=== PATIENT | male | born 1945 | race Caucasian/White ===

== ENCOUNTER 2021-01-18 09:30 | Inpatient (IN) | payer OTHER ==
[~2021-01-18] VITALS: Ht 175.3 cm; Wt 76.9 kg
[2021-01-18] VITALS (7 sets, daily range): BP systolic 129–157; BP diastolic 75–89
[~2021-01-18 09:30] MED LIST: ALBUTEROL NEB INH; ASPIR 8181 MG PO; ASPIRIN81 M2 PO; FLOMAX0.4 MG PO; FLUOXETINE HCL10 MG PO; HYDROCODON PO; IBUPROFEN400 MG PO; LEVAQUIN500 MG PO; LOPRESSOR25 MG PO; METHOCARBAMOL750 MG PO; METOPROLOL TART25 MG PO; MULTAQ400 MG PO; MULTI-VITAMIN1 EACH; MULTIVITAMIN1 EAC2 PO; PREDNISONE5 MG PO; SYMBICORT 16010.2 GM INH; TAMSULOSIN HCL0.4 MG PO; TESSALON PERLE100 MG PO; TIOTROPIUM INH; TRAZODONE HCL50 MG PO; VENTOLIN HFA18 GM INH; Z.0.TERBINAFINE HC25 PO
[2021-01-18 10:01] LABS: BASOPHILS % 0.3 % (0.0-1.0); HEMATOCRIT 37.5 % (38.2-49.6); HEMOGLOBIN 12.3 g/dL (14.0-18.0); LYMPHOCYTES # (AUTO) 0.7 (1.0-3.2); LYMPHOCYTES % 8.7 % (18.0-39.1); MEAN CORPUSCULAR HEMOGLOBIN 28.9 pg (28-32); MEAN CORPUSCULAR HGB CONC 32.8 g/dL (31-35); MEAN CORPUSCULAR VOLUME 88.2 fL (81-99); MONOCYTES # (AUTO) 0.8 (0.2-0.8); MONOCYTES % 9.8 % (4.4-11.3); NEUTROPHILS # (AUTO) 6.3 (2.1-6.9); NEUTROPHILS % 80.9 % (38.7-80.0); PLATELET COUNT 261 x10e3/uL (140-360); RED BLOOD COUNT 4.25 x10e6/uL (4.3-5.7); RED CELL DISTRIBUTION WIDTH 12.7 % (11.7-14.4)
[2021-01-18 10:12] LABS: ALANINE AMINOTRANSFERASE 19 IU/L (0-55); ALBUMIN/GLOBULIN RATIO 0.9 (0.8-2.0); ALKALINE PHOSPHATASE 76 IU/L (40-150); BLOOD UREA NITROGEN 15 mg/dL (7-26); BUN/CREATININE RATIO 19 (6-25); CALCIUM 8.6 mg/dL (8.4-10.2); CARBON DIOXIDE 27 mmol/L (22-29); CHLORIDE 100 mmol/L (98-107); CREATINE KINASE 434 IU/L (30-200); CREATININE, SERUM 0.77 mg/dL (0.72-1.25); EST GLOMERULAR FILTRATION RATE > 60 ML/MIN (60-); GLUCOSE 140 mg/dL (74-118); SODIUM 138 mmol/L (136-145)
[2021-01-18] MEDS ORDERED: PIPERACILLIN/TAZOBAC 3.375 GM in SODIUM CHLORIDE 0.9% 50ML 50 ML IV SCH (11:30)
[2021-01-18] MEDS ORDERED: ALBUTEROL/IPRATROPIUM 3 ML NEB NEB PRN (13:45)
[2021-01-18] MEDS: FLUOXETINE HCL 10 MG CAP PO SCH ×2 (16:45→21:01)
[2021-01-18] MEDS: METOPROLOL TARTRATE 25 MG TAB PO SCH (16:47)
[2021-01-18] MEDS: DRONEDARONE 400 MG TAB PO SCH (16:48)
[2021-01-18] MEDS ORDERED: SEROQUEL50 MG PO (17:06)
[2021-01-18] MEDS: QUETIAPINE FUMARATE 25 MG TAB PO PRN (17:26)
[2021-01-18 19:57] LABS: CREATINE KINASE 362 IU/L (30-200)
[2021-01-18] MEDS: TAMSULOSIN HCL 0.4 MG CAP PO SCH (21:00)
[2021-01-18] MEDS ORDERED: HYDRALAZINE HCL 20 MG/ML VIAL IV PRN (23:15)
[2021-01-18] MEDS: AZITHROMYCIN 500MG/NS 250 ML 250 ML IV SCH (23:54)
[2021-01-18] MEDS: SODIUM CHLORIDE 0.9% 1000ML 1,000 ML IV SCH (23:54)
[2021-01-19] VITALS (7 sets, daily range): BP systolic 115–141; BP diastolic 62–78
[2021-01-19] MEDS: AZITHROMYCIN 500MG/NS 250 ML 250 ML IV SCH (00:05)
[2021-01-19] MEDS: PIPERACILLIN/TAZOBAC 3.375 GM in SODIUM CHLORIDE 0.9% 50ML 50 ML IV SCH ×5 (00:49→23:24)
[2021-01-19 04:47] LABS: BASOPHILS % 0.3 % (0.0-1.0); EOSINOPHILS % 0.3 % (0.0-6.0); HEMATOCRIT 36.1 % (38.2-49.6); HEMOGLOBIN 11.7 g/dL (14.0-18.0); LYMPHOCYTES # (AUTO) 1.2 (1.0-3.2); LYMPHOCYTES % 17.4 % (18.0-39.1); MEAN CORPUSCULAR HGB CONC 32.4 g/dL (31-35); MEAN CORPUSCULAR VOLUME 89.4 fL (81-99); MONOCYTES # (AUTO) 0.7 (0.2-0.8); MONOCYTES % 9.4 % (4.4-11.3); NEUTROPHILS # (AUTO) 5.1 (2.1-6.9); NEUTROPHILS % 72.2 % (38.7-80.0); PLATELET COUNT 264 x10e3/uL (140-360); RED BLOOD COUNT 4.04 x10e6/uL (4.3-5.7); RED CELL DISTRIBUTION WIDTH 12.6 % (11.7-14.4)
[2021-01-19 05:10] LABS: ALANINE AMINOTRANSFERASE 23 IU/L (0-55); ALBUMIN 2.6 g/dL (3.5-5.0); ALBUMIN/GLOBULIN RATIO 0.9 (0.8-2.0); ALKALINE PHOSPHATASE 67 IU/L (40-150); BLOOD UREA NITROGEN 14 mg/dL (7-26); BUN/CREATININE RATIO 18 (6-25); CALCIUM 8.1 mg/dL (8.4-10.2); CARBON DIOXIDE 27 mmol/L (22-29); CHLORIDE 103 mmol/L (98-107); CREATININE, SERUM 0.78 mg/dL (0.72-1.25); EST GLOMERULAR FILTRATION RATE > 60 ML/MIN (60-); GLUCOSE 102 mg/dL (74-118); SODIUM 140 mmol/L (136-145)
[2021-01-19 05:36] LABS: CREATINE KINASE MB 0.9 ng/mL (0-5.0)
[2021-01-19] MEDS: QUETIAPINE FUMARATE 25 MG TAB PO PRN ×3 (05:41→17:01)
[2021-01-19] MEDS: SODIUM CHLORIDE 0.9% 1000ML 1,000 ML IV SCH (08:43)
[2021-01-19] MEDS: DRONEDARONE 400 MG TAB PO SCH ×2 (08:43→16:54)
[2021-01-19] MEDS: METOPROLOL TARTRATE 25 MG TAB PO SCH ×2 (08:43→16:54)
[2021-01-19] MEDS: FLUOXETINE HCL 10 MG CAP PO SCH ×3 (08:43→20:01)
[2021-01-19] MEDS: TRAZODONE HCL 50 MG TAB PO PRN (20:01)
[2021-01-19] MEDS: TAMSULOSIN HCL 0.4 MG CAP PO SCH (20:01)
[2021-01-20] VITALS (8 sets, daily range): BP systolic 117–136; BP diastolic 60–89
[2021-01-20] MEDS: QUETIAPINE FUMARATE 25 MG TAB PO PRN ×3 (00:20→19:37)
[2021-01-20] MEDS: PIPERACILLIN/TAZOBAC 3.375 GM in SODIUM CHLORIDE 0.9% 50ML 50 ML IV SCH ×3 (05:10→18:14)
[2021-01-20] MEDS: DRONEDARONE 400 MG TAB PO SCH ×2 (08:15→16:50)
[2021-01-20] MEDS: FLUOXETINE HCL 10 MG CAP PO SCH ×3 (08:30→19:37)
[2021-01-20] MEDS: METOPROLOL TARTRATE 25 MG TAB PO SCH ×2 (08:30→17:35)
[2021-01-20] MEDS: TAMSULOSIN HCL 0.4 MG CAP PO SCH (19:37)
[2021-01-20] MEDS: TRAZODONE HCL 50 MG TAB PO PRN (19:37)
[2021-01-20] MEDS: AZITHROMYCIN 500MG/NS 250 ML 250 ML IV SCH (23:32)
[2021-01-21] VITALS (8 sets, daily range): BP systolic 110–159; BP diastolic 78–114
[2021-01-21] MEDS: PIPERACILLIN/TAZOBAC 3.375 GM in SODIUM CHLORIDE 0.9% 50ML 50 ML IV SCH ×4 (00:32→18:02)
[2021-01-21] MEDS: QUETIAPINE FUMARATE 25 MG TAB PO PRN ×3 (08:00→21:39)
[2021-01-21] MEDS: DRONEDARONE 400 MG TAB PO SCH ×2 (09:05→18:02)
[2021-01-21] MEDS: METOPROLOL TARTRATE 25 MG TAB PO SCH ×2 (09:06→18:03)
[2021-01-21] MEDS: FLUOXETINE HCL 10 MG CAP PO SCH ×3 (09:06→21:36)
[2021-01-21] MEDS ORDERED: PIPERACILLIN/TAZOBAC 3.375 GM VIAL ONE ×2 (16:06→21:35)
[2021-01-21] MEDS ORDERED: SODIUM CHLORIDE 0.9% 50ML 50 ML ONE ×2 (16:07→21:36)
[2021-01-21] MEDS: TAMSULOSIN HCL 0.4 MG CAP PO SCH (21:36)
[2021-01-21] MEDS: AZITHROMYCIN 500MG/NS 250 ML 250 ML IV SCH (21:37)
[2021-01-21] MEDS ORDERED: SODIUM CHLORIDE 0.9% 100 ML ONE (21:37)
[2021-01-21] MEDS: TRAZODONE HCL 50 MG TAB PO PRN (21:39)
[2021-01-22] VITALS (7 sets, daily range): BP systolic 135–175; BP diastolic 62–79
[2021-01-22] MEDS ORDERED: PIPERACILLIN/TAZOBAC 3.375 GM VIAL ONE ×4 (04:15→23:10)
[2021-01-22] MEDS ORDERED: SODIUM CHLORIDE 0.9% 50ML 50 ML ONE ×4 (04:31→23:12)
[2021-01-22] MEDS: PIPERACILLIN/TAZOBAC 3.375 GM in SODIUM CHLORIDE 0.9% 50ML 50 ML IV SCH ×5 (05:38→17:38)
[2021-01-22] MEDS: FLUOXETINE HCL 10 MG CAP PO SCH ×3 (08:01→20:29)
[2021-01-22] MEDS: QUETIAPINE FUMARATE 25 MG TAB PO PRN ×3 (08:01→20:29)
[2021-01-22] MEDS: METOPROLOL TARTRATE 25 MG TAB PO SCH ×2 (08:02→17:38)
[2021-01-22] MEDS: DRONEDARONE 400 MG TAB PO SCH ×2 (08:02→17:42)
[2021-01-22] MEDS: TAMSULOSIN HCL 0.4 MG CAP PO SCH (20:29)
[2021-01-22] MEDS: AZITHROMYCIN 500MG/NS 250 ML 250 ML IV SCH (23:05)
[2021-01-23] VITALS (8 sets, daily range): BP systolic 124–140; BP diastolic 65–88
[2021-01-23] MEDS ORDERED: PIPERACILLIN/TAZOBAC 3.375 GM VIAL ONE ×3 (05:22→17:20)
[2021-01-23] MEDS ORDERED: SODIUM CHLORIDE 0.9% 50ML 50 ML ONE ×3 (05:23→17:20)
[2021-01-23] MEDS: PIPERACILLIN/TAZOBAC 3.375 GM in SODIUM CHLORIDE 0.9% 50ML 50 ML IV SCH ×5 (06:00→17:12)
[2021-01-23 06:03] LABS: BASOPHILS % 0.4 % (0.0-1.0); EOSINOPHILS # (AUTO) 0.2 (0.0-0.4); EOSINOPHILS % 1.6 % (0.0-6.0); HEMATOCRIT 41.9 % (38.2-49.6); HEMOGLOBIN 13.8 g/dL (14.0-18.0); LYMPHOCYTES # (AUTO) 1.8 (1.0-3.2); LYMPHOCYTES % 19.8 % (18.0-39.1); MEAN CORPUSCULAR HEMOGLOBIN 29.2 pg (28-32); MEAN CORPUSCULAR HGB CONC 32.9 g/dL (31-35); MEAN CORPUSCULAR VOLUME 88.8 fL (81-99); MONOCYTES # (AUTO) 0.8 (0.2-0.8); MONOCYTES % 8.1 % (4.4-11.3); NEUTROPHILS # (AUTO) 6.4 (2.1-6.9); NEUTROPHILS % 69.2 % (38.7-80.0); PLATELET COUNT 376 x10e3/uL (140-360); RED BLOOD COUNT 4.72 x10e6/uL (4.3-5.7); RED CELL DISTRIBUTION WIDTH 12.5 % (11.7-14.4)
[2021-01-23 06:23] LABS: ANION GAP 15.2 mmol/L (8-16); BLOOD UREA NITROGEN 12 mg/dL (7-26); BUN/CREATININE RATIO 15 (6-25); CALCIUM 8.2 mg/dL (8.4-10.2); CARBON DIOXIDE 23 mmol/L (22-29); CHLORIDE 105 mmol/L (98-107); CREATININE, SERUM 0.81 mg/dL (0.72-1.25); EST GLOMERULAR FILTRATION RATE > 60 ML/MIN (60-); GLUCOSE 117 mg/dL (74-118); POTASSIUM 4.2 mmol/L (3.5-5.1); SODIUM 139 mmol/L (136-145)
[2021-01-23] MEDS: FLUOXETINE HCL 10 MG CAP PO SCH ×3 (08:18→20:24)
[2021-01-23] MEDS: DRONEDARONE 400 MG TAB PO SCH ×2 (08:18→17:12)
[2021-01-23] MEDS: QUETIAPINE FUMARATE 25 MG TAB PO PRN ×3 (08:18→20:30)
[2021-01-23] MEDS: METOPROLOL TARTRATE 25 MG TAB PO SCH ×2 (08:18→17:12)
[2021-01-23] MEDS: TAMSULOSIN HCL 0.4 MG CAP PO SCH (20:24)
[2021-01-23] MEDS: TRAZODONE HCL 50 MG TAB PO PRN (20:24)
[2021-01-23] MEDS: AZITHROMYCIN 500MG/NS 250 ML 250 ML IV SCH (23:30)
[2021-01-24] VITALS (9 sets, daily range): BP systolic 95–132; BP diastolic 65–96
[2021-01-24] MEDS: QUETIAPINE FUMARATE 25 MG TAB PO PRN ×4 (02:34→19:19)
[2021-01-24] MEDS ORDERED: PIPERACILLIN/TAZOBAC 3.375 GM VIAL ONE ×5 (02:38→21:25)
[2021-01-24] MEDS ORDERED: SODIUM CHLORIDE 0.9% 50ML 50 ML ONE ×5 (04:23→21:27)
[2021-01-24] MEDS: PIPERACILLIN/TAZOBAC 3.375 GM in SODIUM CHLORIDE 0.9% 50ML 50 ML IV SCH ×5 (04:50→18:17)
[2021-01-24] MEDS: DRONEDARONE 400 MG TAB PO SCH ×2 (09:20→18:17)
[2021-01-24] MEDS: FLUOXETINE HCL 10 MG CAP PO SCH ×3 (09:23→21:29)
[2021-01-24] MEDS: METOPROLOL TARTRATE 25 MG TAB PO SCH ×2 (09:23→18:16)
[2021-01-24] MEDS: TAMSULOSIN HCL 0.4 MG CAP PO SCH (21:35)
[2021-01-24] MEDS: AZITHROMYCIN 500MG/NS 250 ML 250 ML IV SCH (23:30)
[2021-01-25] MEDS ORDERED: SODIUM CHLORIDE 0.9% 100 ML ONE (00:47)
[2021-01-25] MEDS ORDERED: SODIUM CHLORIDE 0.9% 50ML 50 ML ONE (05:06)
[2021-01-25] MEDS ORDERED: PIPERACILLIN/TAZOBAC 3.375 GM VIAL ONE (05:06)
[2021-01-25] MEDS: PIPERACILLIN/TAZOBAC 3.375 GM in SODIUM CHLORIDE 0.9% 50ML 50 ML IV SCH ×5 (05:14→16:55)
[2021-01-25] MEDS: QUETIAPINE FUMARATE 25 MG TAB PO PRN ×3 (05:15→21:37)
[2021-01-25 05:25] VITALS: BP 105/61
[2021-01-25 08:59] VITALS: BP 105/61
[2021-01-25 09:20] VITALS: BP 116/72
[2021-01-25] MEDS: FLUOXETINE HCL 10 MG CAP PO SCH ×3 (09:47→21:37)
[2021-01-25] MEDS: METOPROLOL TARTRATE 25 MG TAB PO SCH ×2 (09:48→16:56)
[2021-01-25] MEDS: DRONEDARONE 400 MG TAB PO SCH ×2 (09:48→16:56)
[2021-01-25 15:55] VITALS: BP 119/66
[2021-01-25 19:09] VITALS: BP 120/72
[2021-01-25 21:33] VITALS: BP 120/72
[2021-01-25] MEDS: TAMSULOSIN HCL 0.4 MG CAP PO SCH (21:37)
[2021-01-25] MEDS: TRAZODONE HCL 50 MG TAB PO PRN (21:37)
[2021-01-26] VITALS (7 sets, daily range): BP systolic 98–155; BP diastolic 63–79
[2021-01-26] MEDS: PIPERACILLIN/TAZOBAC 3.375 GM in SODIUM CHLORIDE 0.9% 50ML 50 ML IV SCH ×5 (00:14→23:22)
[2021-01-26] MEDS: AZITHROMYCIN 500MG/NS 250 ML 250 ML IV SCH ×2 (00:14→21:56)
[2021-01-26] MEDS: QUETIAPINE FUMARATE 25 MG TAB PO SCH ×3 (10:25→21:56)
[2021-01-26] MEDS: DRONEDARONE 400 MG TAB PO SCH ×2 (10:36→17:15)
[2021-01-26] MEDS: METOPROLOL TARTRATE 25 MG TAB PO SCH ×2 (10:37→17:15)
[2021-01-26] MEDS: FLUOXETINE HCL 10 MG CAP PO SCH ×3 (10:37→21:56)
[2021-01-26] MEDS: QUETIAPINE FUMARATE 25 MG TAB PO PRN (13:20)
[2021-01-26] MEDS: TAMSULOSIN HCL 0.4 MG CAP PO SCH (21:55)
[2021-01-27] VITALS (7 sets, daily range): BP systolic 112–133; BP diastolic 64–74
[2021-01-27] MEDS: PIPERACILLIN/TAZOBAC 3.375 GM in SODIUM CHLORIDE 0.9% 50ML 50 ML IV SCH ×4 (05:47→23:03)
[2021-01-27] MEDS: DRONEDARONE 400 MG TAB PO SCH ×2 (09:14→17:50)
[2021-01-27] MEDS: QUETIAPINE FUMARATE 25 MG TAB PO SCH ×4 (09:16→20:37)
[2021-01-27] MEDS: METOPROLOL TARTRATE 25 MG TAB PO SCH ×2 (09:16→18:04)
[2021-01-27] MEDS: FLUOXETINE HCL 10 MG CAP PO SCH ×3 (09:16→20:37)
[2021-01-27] MEDS: TAMSULOSIN HCL 0.4 MG CAP PO SCH (20:37)
[2021-01-27] MEDS: AZITHROMYCIN 500MG/NS 250 ML 250 ML IV SCH (22:46)
[2021-01-28] VITALS (8 sets, daily range): BP systolic 102–136; BP diastolic 61–97
[2021-01-28] MEDS: PIPERACILLIN/TAZOBAC 3.375 GM in SODIUM CHLORIDE 0.9% 50ML 50 ML IV SCH ×4 (05:17→23:30)
[2021-01-28] MEDS: DRONEDARONE 400 MG TAB PO SCH ×2 (07:39→15:55)
[2021-01-28] MEDS: FLUOXETINE HCL 10 MG CAP PO SCH ×3 (08:03→20:09)
[2021-01-28] MEDS: QUETIAPINE FUMARATE 25 MG TAB PO SCH ×4 (08:03→20:09)
[2021-01-28] MEDS: METOPROLOL TARTRATE 25 MG TAB PO SCH ×2 (08:04→15:55)
[2021-01-28 09:35] LABS: BASOPHILS # (AUTO) 0.1 (0.0-0.1); BASOPHILS % 1.6 % (0.0-1.0); EOSINOPHILS # (AUTO) 0.1 (0.0-0.4); EOSINOPHILS % 0.9 % (0.0-6.0); HEMATOCRIT 42.5 % (38.2-49.6); HEMOGLOBIN 13.5 g/dL (14.0-18.0); LYMPHOCYTES # (AUTO) 1.1 (1.0-3.2); LYMPHOCYTES % 14.6 % (18.0-39.1); MEAN CORPUSCULAR HEMOGLOBIN 28.9 pg (28-32); MEAN CORPUSCULAR HGB CONC 31.8 g/dL (31-35); MONOCYTES # (AUTO) 0.4 (0.2-0.8); MONOCYTES % 5.1 % (4.4-11.3); NEUTROPHILS % 77.5 % (38.7-80.0); PLATELET COUNT 310 x10e3/uL (140-360); RED BLOOD COUNT 4.67 x10e6/uL (4.3-5.7)
[2021-01-28] MEDS: QUETIAPINE FUMARATE 25 MG TAB PO PRN (09:39)
[2021-01-28 09:54] LABS: ANION GAP 14.4 mmol/L (8-16); BLOOD UREA NITROGEN 15 mg/dL (7-26); BUN/CREATININE RATIO 18 (6-25); CALCIUM 8.2 mg/dL (8.4-10.2); CARBON DIOXIDE 22 mmol/L (22-29); CHLORIDE 105 mmol/L (98-107); CREATININE, SERUM 0.84 mg/dL (0.72-1.25); EST GLOMERULAR FILTRATION RATE > 60 ML/MIN (60-); GLUCOSE 199 mg/dL (74-118); POTASSIUM 4.4 mmol/L (3.5-5.1); SODIUM 137 mmol/L (136-145)
[2021-01-28] MEDS: TAMSULOSIN HCL 0.4 MG CAP PO SCH (20:10)
[2021-01-28] MEDS: AZITHROMYCIN 500MG/NS 250 ML 250 ML IV SCH (22:00)
[2021-01-29] VITALS (7 sets, daily range): BP systolic 114–141; BP diastolic 73–86
[2021-01-29] MEDS: QUETIAPINE FUMARATE 25 MG TAB PO PRN (05:10)
[2021-01-29] MEDS: DRONEDARONE 400 MG TAB PO SCH ×2 (07:44→17:07)
[2021-01-29] MEDS: FLUOXETINE HCL 10 MG CAP PO SCH ×3 (08:44→21:00)
[2021-01-29] MEDS: QUETIAPINE FUMARATE 25 MG TAB PO SCH ×4 (08:44→21:00)
[2021-01-29] MEDS: METOPROLOL TARTRATE 25 MG TAB PO SCH ×2 (08:44→17:08)
[2021-01-29] MEDS: MEMANTINE 10 MG TAB PO SCH ×2 (09:54→17:08)
[2021-01-29] MEDS: TAMSULOSIN HCL 0.4 MG CAP PO SCH (21:00)
[2021-01-30] VITALS (8 sets, daily range): BP systolic 104–168; BP diastolic 63–87
[2021-01-30] MEDS: QUETIAPINE FUMARATE 25 MG TAB PO SCH ×4 (07:30→20:22)
[2021-01-30] MEDS: DRONEDARONE 400 MG TAB PO SCH ×2 (08:09→16:30)
[2021-01-30] MEDS: METOPROLOL TARTRATE 25 MG TAB PO SCH ×2 (08:09→16:31)
[2021-01-30] MEDS: FLUOXETINE HCL 10 MG CAP PO SCH ×3 (08:09→20:22)
[2021-01-30] MEDS: MEMANTINE 10 MG TAB PO SCH ×2 (08:09→16:31)
[2021-01-30] MEDS: TAMSULOSIN HCL 0.4 MG CAP PO SCH (20:22)
[2021-01-31] VITALS (9 sets, daily range): BP systolic 87–131; BP diastolic 60–88
[2021-01-31] MEDS: QUETIAPINE FUMARATE 25 MG TAB PO SCH ×4 (09:57→20:08)
[2021-01-31] MEDS: DRONEDARONE 400 MG TAB PO SCH ×2 (09:58→17:56)
[2021-01-31] MEDS: METOPROLOL TARTRATE 25 MG TAB PO SCH ×2 (09:58→17:57)
[2021-01-31] MEDS: MEMANTINE 10 MG TAB PO SCH ×2 (09:59→17:56)
[2021-01-31] MEDS: FLUOXETINE HCL 10 MG CAP PO SCH ×3 (09:59→20:08)
[2021-01-31] MEDS: TAMSULOSIN HCL 0.4 MG CAP PO SCH (20:08)
[2021-02-01] VITALS (8 sets, daily range): BP systolic 95–117; BP diastolic 57–92
[2021-02-01] MEDS: QUETIAPINE FUMARATE 25 MG TAB PO SCH ×4 (09:09→21:00)
[2021-02-01] MEDS: DRONEDARONE 400 MG TAB PO SCH ×2 (09:10→17:27)
[2021-02-01] MEDS: METOPROLOL TARTRATE 25 MG TAB PO SCH ×2 (09:10→17:27)
[2021-02-01] MEDS: MEMANTINE 10 MG TAB PO SCH ×2 (09:10→17:27)
[2021-02-01] MEDS: FLUOXETINE HCL 10 MG CAP PO SCH (09:10)
[2021-02-01] MEDS: DIVALPROEX SODIUM 250 MG TAB...DR PO SCH ×3 (11:28→22:00)
[2021-02-01] MEDS: TAMSULOSIN HCL 0.4 MG CAP PO SCH (21:00)
[2021-02-02 03:26] VITALS: BP 90/68
[2021-02-02] MEDS: DIVALPROEX SODIUM 250 MG TAB...DR PO SCH ×3 (06:12→21:28)
[2021-02-02 08:01] VITALS: BP 90/68
[2021-02-02 08:34] VITALS: BP 103/86
[2021-02-02] MEDS: QUETIAPINE FUMARATE 25 MG TAB PO SCH ×4 (09:37→21:28)
[2021-02-02] MEDS: DRONEDARONE 400 MG TAB PO SCH ×2 (09:37→16:49)
[2021-02-02] MEDS: METOPROLOL TARTRATE 25 MG TAB PO SCH ×2 (09:38→16:49)
[2021-02-02] MEDS: MEMANTINE 10 MG TAB PO SCH ×2 (09:38→16:49)
[2021-02-02 20:00] VITALS: BP 144/56
[2021-02-02] MEDS ORDERED: TRAZODONE HCL 50 MG TAB PO PRN (20:45)
[2021-02-02] MEDS: TAMSULOSIN HCL 0.4 MG CAP PO SCH (21:27)
[2021-02-03] VITALS (7 sets, daily range): BP systolic 102–122; BP diastolic 56–95
[2021-02-03] MEDS: QUETIAPINE FUMARATE 25 MG TAB PO PRN (00:12)
[2021-02-03] MEDS: DIVALPROEX SODIUM 250 MG TAB...DR PO SCH ×3 (05:32→22:00)
[2021-02-03] MEDS: DRONEDARONE 400 MG TAB PO SCH ×2 (07:45→18:53)
[2021-02-03] MEDS: QUETIAPINE FUMARATE 25 MG TAB PO SCH ×4 (07:45→21:00)
[2021-02-03] MEDS: METOPROLOL TARTRATE 25 MG TAB PO SCH ×2 (07:46→18:53)
[2021-02-03] MEDS: MEMANTINE 10 MG TAB PO SCH ×2 (07:46→18:53)
[2021-02-03] MEDS ORDERED: QUETIAPINE FUMARATE 25 MG TAB PO NR (10:30)
[2021-02-03 12:11] LABS: BASOPHILS # (AUTO) 0.1 (0.0-0.1); BASOPHILS % 1.5 % (0.0-1.0); EOSINOPHILS # (AUTO) 0.1 (0.0-0.4); EOSINOPHILS % 0.9 % (0.0-6.0); HEMATOCRIT 44.4 % (38.2-49.6); HEMOGLOBIN 14.2 g/dL (14.0-18.0); LYMPHOCYTES # (AUTO) 1.6 (1.0-3.2); LYMPHOCYTES % 23.9 % (18.0-39.1); MEAN CORPUSCULAR VOLUME 90.6 fL (81-99); MONOCYTES # (AUTO) 0.5 (0.2-0.8); MONOCYTES % 6.7 % (4.4-11.3); NEUTROPHILS # (AUTO) 4.6 (2.1-6.9); NEUTROPHILS % 66.6 % (38.7-80.0); PLATELET COUNT 289 x10e3/uL (140-360); RED CELL DISTRIBUTION WIDTH 13.2 % (11.7-14.4)
[2021-02-03 12:25] LABS: ANION GAP 12.5 mmol/L (8-16); BLOOD UREA NITROGEN 17 mg/dL (7-26); BUN/CREATININE RATIO 20 (6-25); CALCIUM 8.5 mg/dL (8.4-10.2); CARBON DIOXIDE 29 mmol/L (22-29); CHLORIDE 103 mmol/L (98-107); CREATININE, SERUM 0.87 mg/dL (0.72-1.25); EST GLOMERULAR FILTRATION RATE > 60 ML/MIN (60-); GLUCOSE 122 mg/dL (74-118); POTASSIUM 4.5 mmol/L (3.5-5.1); SODIUM 140 mmol/L (136-145)
[2021-02-03] MEDS ORDERED: QUETIAPINE FUMARATE 25 MG TAB PO SCH (15:00)
[2021-02-03] MEDS: TAMSULOSIN HCL 0.4 MG CAP PO SCH (21:00)
[2021-02-04] VITALS (7 sets, daily range): BP systolic 103–130; BP diastolic 58–72
[2021-02-04] MEDS: DIVALPROEX SODIUM 250 MG TAB...DR PO SCH ×3 (06:10→22:00)
[2021-02-04] MEDS: METOPROLOL TARTRATE 25 MG TAB PO SCH ×2 (08:30→17:35)
[2021-02-04] MEDS: QUETIAPINE FUMARATE 25 MG TAB PO SCH ×4 (08:30→20:19)
[2021-02-04] MEDS: MEMANTINE 10 MG TAB PO SCH ×2 (08:30→17:34)
[2021-02-04] MEDS: DRONEDARONE 400 MG TAB PO SCH ×2 (08:30→17:34)
[2021-02-04] MEDS: TAMSULOSIN HCL 0.4 MG CAP PO SCH (20:18)
[2021-02-05] VITALS (7 sets, daily range): BP systolic 104–138; BP diastolic 61–77
[2021-02-05] MEDS: DIVALPROEX SODIUM 250 MG TAB...DR PO SCH ×2 (06:00→13:00)
[2021-02-05] MEDS: QUETIAPINE FUMARATE 25 MG TAB PO SCH ×3 (07:21→16:22)
[2021-02-05] MEDS: DRONEDARONE 400 MG TAB PO SCH ×2 (08:03→16:22)
[2021-02-05] MEDS: MEMANTINE 10 MG TAB PO SCH ×2 (08:04→16:22)
[2021-02-05] MEDS: METOPROLOL TARTRATE 25 MG TAB PO SCH ×2 (08:04→16:22)
[2021-02-05] MEDS: QUETIAPINE FUMARATE 25 MG TAB PO PRN (09:12)
== END 2021-02-05 18:28 | disposition hospice, inpatient (51) | DRG 871 ==
LOC: ER 09:45 → ERHOLD 11:13 → IMCU 13:07 → OBSVTOIN 23:21 → MED/SURG3 01-21 11:45
PROVIDERS: ADMIT Internal Medicine; ATTEND Internal Medicine
DX: A41.9 Sepsis, unspecified organism (principal); J69.0 Pneumonitis due to inhalation of food and vomit; G92 Toxic encephalopathy; J44.1 Chronic obstructive pulmonary disease with (acute) exacerbation; A81.00 Creutzfeldt-Jakob disease, unspecified; R64 Cachexia; F03.91 Unspecified dementia, unspecified severity, with behavioral disturbance; Z20.822 Contact with and (suspected) exposure to COVID-19; R09.02 Hypoxemia
CPT/HCPCS: 36415; 70450; 71045; 71250; 74230; 80048; 80053; 82550; 82553; 83605; 83880; 84484; 85025; 87040; 93005; 96360; 97139; 99251; 99284; J0360; J0456; J2543; J7030; J7050; U0002